=== PATIENT | female | born 1960 | race Caucasian/White ===

== ENCOUNTER 2017-08-06 10:11 | Inpatient (IN) ==
[2017-08-06] MEDS ORDERED: SODIUM CHLORIDE 0.9% 2,350 ML IV ONE (10:38)
[2017-08-06 10:55] LABS: Basophils % 0.3 % (0.0-0.8); Eosinophils # 0.1 10*3/uL (0.0-0.87); Eosinophils % 0.4 % (0.00-10.9); Hematocrit 28.2 VOL% (35.7-47.0); Hemoglobin 9.1 GM/DL (12.0-16.0); Immature Granulocytes % 0.7 %; Immature Granulocytes Absolute 0.09 #; Lymphocytes # 0.9 10*3/uL (1.4-4.0); Mean Corpuscular HGB Conc 32.3 GM/DL (32-36); Mean Corpuscular Hemoglobin 27 PG (27-34); Mean Corpuscular Volume 82.9 FL (87-102); Mean Platelet Volume 10.2 FL (9.6-12.0); Monocytes # 0.4 10*3/uL (0.11-0.8); Neutrophils # 11.1 10*3/uL (1.4-7.4); Neutrophils % 88.6 % (38.7-73.9); Platelet Count 251 T/CUMM (130-400); White Blood Count 12.5 T/CUMM (4-12)
[2017-08-06] MEDS ORDERED: HYDROCORTISONE 100 MG VIAL IV STA (11:06)
[2017-08-06 11:07] LABS: INR 0.9; Partial Thromboplastin Time 24.4 SECS (0-40)
[2017-08-06 11:13] LABS: Albumin 3.9 G/DL (3.4-5.0); Bilirubin,Total 0.4 MG/DL (0.2-1.0); Calcium 9.3 MG/DL (8.5-10.1); Osmolality,Calculated 293.1 MOS/KG (273-304); Potassium 4.5 MMOL/L (3.5-5.1); Total Protein 8.2 G/DL (6.4-8.3)
[2017-08-06 13:00] LABS: Lactic Acid 1.9 MMOL/L (0.4-2.0)
[2017-08-06] MEDS ORDERED: HYDROCORTISONE 100 MG VIAL ONE (13:03)
[2017-08-06] MEDS ORDERED: BENZTROPINE 2 MG/2 ML AMP IV PRN (14:48)
[2017-08-06] MEDS ORDERED: chlorproMAZINE INJ 50 MG in SODIUM CHLORIDE 0.9% 100 ML IV PRN (14:48)
[2017-08-06] MEDS ORDERED: MYLANTA/LIDO VISC 2:1 300 ML BOTTLE SWISH/SPIT PRN (14:48)
[2017-08-06] MEDS ORDERED: LOPERAMIDE 2 MG CAPSULE PO PRN ×2 (14:48)
[2017-08-06] MEDS ORDERED: ONDANSETRON 4 MG/2 ML VIAL IV PRN (14:48)
[2017-08-06] MEDS ORDERED: ALUMINUM/MAGNES/SIMETH MAX STR 30 ML UDCUP PO PRN (14:48)
[2017-08-06] MEDS ORDERED: diphenhydrAMINE CAP 25 MG CAPSULE PO PRN (14:48)
[2017-08-06] MEDS ORDERED: MYLANTA/LIDO VISC 2:1 300 ML BOTTLE SWISH/SWAL PRN (14:48)
[2017-08-06] MEDS ORDERED: guaiFENesin 200 MG/10 ML UDCUP PO PRN (14:48)
[2017-08-06] MEDS ORDERED: MAGNESIUM HYDROXIDE SUSP 30 ML UDCUP PO PRN (14:48)
[2017-08-06] MEDS ORDERED: ACETAMINOPHEN 325 MG TABLET PO PRN (14:48)
[2017-08-06] MEDS ORDERED: TEMAZEPAM 7.5 MG CAPSULE PO PRN (14:48)
[2017-08-06] MEDS ORDERED: LACTULOSE 20 GM/30 ML UDCUP PO PRN (14:48)
[2017-08-06] MEDS ORDERED: chlorproMAZINE 25 MG TABLET PO PRN (14:48)
[2017-08-06] MEDS ORDERED: chlorproMAZINE INJ 25 MG in SODIUM CHLORIDE 0.9% 100 ML IV PRN (14:48)
[2017-08-06] MEDS ORDERED: ALPRAZolam 0.25 MG TABLET PO PRN (14:48)
[2017-08-06] MEDS ORDERED: traMADol 50 MG TABLET PO PRN (14:48)
[2017-08-06] MEDS ORDERED: PROMETHAZINE INJ 25 MG in SODIUM CHLORIDE 0.9% 50 ML IV PRN (14:48)
[2017-08-06] MEDS: SODIUM CHLORIDE 0.9% 1,000 ML IV SCH ×2 (15:12→21:48)
[2017-08-06 16:18] LABS: Apearance,Urine Slightly Hazy (Clear); Bacteria,Urine Occasional /HPF (Few); Bilirubin,Urine Negative (Negative); Blood, Urine Small mg/dL (Negative); Glucose,Urine (UA) 150 mg/dL (Negative); Ketones,Urine Negative (Negative); Nitrite,Urine Negative (Negative); Protein,Urine Negative; Squamous Epithelial Cell,Urine Occasional /HPF (0-10); Urine Color Straw (Yellow); Urine Specific Gravity 1.006 (1.001-1.035); Urine Urobilinogen < 2.0 EU/DL (0.2-1.0); WBC,Urine 1 /HPF (0-6)
[2017-08-07] MEDS: SODIUM CHLORIDE 0.9% 1,000 ML IV SCH ×2 (04:22→12:52)
[2017-08-07 06:03] LABS: Calcium 8.3 MG/DL (8.5-10.1); Potassium 4.3 MMOL/L (3.5-5.1)
[2017-08-07 07:40] LABS: Basophils % 0.4 % (0.0-0.8); Eosinophils # 0.1 10*3/uL (0.0-0.87); Eosinophils % 0.8 % (0.00-10.9); Hematocrit 25.1 VOL% (35.7-47.0); Hemoglobin 8.1 GM/DL (12.0-16.0); Immature Granulocytes % 0.7 %; Immature Granulocytes Absolute 0.05 #; Lymphocytes # 1.8 10*3/uL (1.4-4.0); Lymphocytes % 24.9 % (21.3-54.2); Mean Corpuscular HGB Conc 32.3 GM/DL (32-36); Mean Corpuscular Hemoglobin 27 PG (27-34); Mean Corpuscular Volume 83.1 FL (87-102); Mean Platelet Volume 10.6 FL (9.6-12.0); Monocytes # 0.4 10*3/uL (0.11-0.8); Monocytes % 6.1 % (1.7-12.7); Neutrophils # 4.7 10*3/uL (1.4-7.4); Neutrophils % 67.1 % (38.7-73.9); Platelet Count 245 T/CUMM (130-400); Red Blood Count 3.02 MC/CUMM (3.8-5.5); White Blood Count 7.1 T/CUMM (4-12)
[2017-08-07] MEDS ORDERED: CLORAZEPATE 3.75 MG TABLET PO PRN (08:59)
[2017-08-07] MEDS ORDERED: CETIRIZINE 10 MG TABLET PO PRN (08:59)
[2017-08-07] MEDS ORDERED: NON-FORMULARY MEDICATION (Albuterol Inhaler 2 PUFF) INH PRN (08:59)
[2017-08-07] MEDS ORDERED: PROCHLORPERAZINE 10 MG TABLET PO PRN (08:59)
[2017-08-07] MEDS ORDERED: INSULIN NPH 100 UNIT/ML SUBCUT SCH (09:00)
[2017-08-07] MEDS ORDERED: NON-FORMULARY MEDICATION (Fluticasone 50 Mcg Nasal Spray [Flonase Nasal Spray] 2 SPRAY) BOTH NARES SCH (09:00)
[2017-08-07] MEDS ORDERED: DEXAMETHASONE 0.5 MG TABLET PO SCH (09:00)
[2017-08-07] MEDS ORDERED: NON-FORMULARY MEDICATION (Budesonide/Formoterol 160-4.5 [Symbicort 160-4.5] 2 PUFF) INH SCH (09:00)
[2017-08-07] MEDS ORDERED: CITALOPRAM 40 MG TABLET PO SCH (09:00)
[2017-08-07] MEDS ORDERED: NON-FORMULARY MEDICATION (Brexpiprazole [Rexulti] 1 MG) PO SCH (09:00)
[2017-08-07] MEDS ORDERED: PANTOPRAZOLE 40 MG TABLET PO SCH (09:00)
[2017-08-07] MEDS: GABAPENTIN 300 MG CAPSULE PO SCH ×2 (09:30→14:53)
[2017-08-07 12:36] VITALS: BP 135/65
[2017-08-07] MEDS ORDERED: HydrOXYzine PAMOATE 25 MG CAPSULE PO SCH (21:00)
[2017-08-08] MEDS ORDERED: LEVOTHYROXINE 25 MCG TABLET PO SCH (07:00)
[2017-08-08] MEDS ORDERED: GLIMEPIRIDE 4 MG TABLET PO SCH (08:00)
== END 2017-08-07 16:06 | disposition home or self-care (01) | DRG 683 ==
LOC: N.ED 10:11 → N.EDINP 12:58 → N.4E 14:49
PROVIDERS: ADMIT Specialist; ATTEND Specialist

== ENCOUNTER 2019-07-05 13:02 | Inpatient (IN) ==
[2019-07-05] MEDS ORDERED: SODIUM CHLORIDE 0.9% 1,000 ML IV STA (13:55)
[2019-07-05 14:20] LABS: Basophils # 0.1 10*3/uL (0.0-0.2); Basophils % 0.9 % (0.0-0.8); Eosinophils # 0.3 10*3/uL (0.0-0.87); Eosinophils % 3.5 % (0.00-10.9); Hemoglobin 8.2 GM/DL (12.0-16.0); Immature Granulocytes % 0.2 %; Immature Granulocytes Absolute 0.02 #; Lymphocytes # 1.1 10*3/uL (1.4-4.0); Lymphocytes % 12.3 % (21.3-54.2); Mean Corpuscular HGB Conc 30.4 GM/DL (32-36); Mean Corpuscular Volume 82.8 FL (87-102); Mean Platelet Volume 8.9 FL (9.6-12.0); Monocytes % 10.3 % (1.7-12.7); Neutrophils % 72.8 % (38.7-73.9); Platelet Count 426 T/CUMM (130-400); Red Blood Count 3.26 MC/CUMM (3.8-5.5); Red Cell Distribution Width 18.6 % (9.3-17.3); White Blood Count 8.5 T/CUMM (4-12)
[2019-07-05 14:41] LABS: Albumin 2.6 G/DL (3.4-5.0); Bilirubin,Total 0.4 MG/DL (0.2-1.0); Calcium 8.5 MG/DL (8.5-10.1); Osmolality,Calculated 269.8 MOS/KG (273-304); Total Protein 6.7 G/DL (6.4-8.3)
[2019-07-05] MEDS ORDERED: POTASSIUM CHLORIDE 20 MEQ TABLET PO STA (14:55)
[2019-07-05] MEDS ORDERED: MORPHINE 4 MG/1 ML VIAL IV PRN (15:06)
[2019-07-05] MEDS ORDERED: DEXTROSE 10% 250 ML BAG IV PRN (15:06)
[2019-07-05] MEDS ORDERED: ALUMINUM/MAGNES/SIMETH MAX STR 30 ML UDCUP PO PRN (15:06)
[2019-07-05] MEDS ORDERED: GLUCAGON 1 MG VIAL IM PRN (15:06)
[2019-07-05] MEDS ORDERED: POTASSIUM CHLORIDE 20 MEQ TABLET PO ONE ×2 (15:06→15:26)
[2019-07-05] MEDS ORDERED: MAGNESIUM SULF RIDER 4 GM in PREMIX 1 EACH IV STA (15:42)
[2019-07-05] MEDS ORDERED: ALBUTEROL 2.5 MG/3 ML NEB RESP TX PRN (15:56)
[2019-07-05] MEDS ORDERED: LEVOFLOXACIN INJ 750 MG in PREMIX 1 EACH IV SCH (17:00)
[2019-07-05] MEDS: SODIUM CHLORIDE 0.9% 1,000 ML IV SCH (18:38)
[2019-07-05] MEDS: INSULIN REGULAR 100 UNIT/ML SUBCUT SCH ×2 (18:39→21:47)
[2019-07-05] MEDS: POTASSIUM CHLORIDE RIDER 10 MEQ in PREMIX 1 EACH IV SCH ×2 (19:06→21:46)
[2019-07-05] MEDS ORDERED: SODIUM CHLORIDE 0.9% 1,000 ML IV PRN ×2 (19:23→23:29)
[2019-07-05] MEDS ORDERED: MAGNESIUM SULF RIDER 2 GM in PREMIX 1 EACH IV ONE (19:28)
[2019-07-05] MEDS: ALBUTEROL/IPRATROPIUM 3 ML NEB RESP TX SCH (19:48)
[2019-07-05] MEDS ORDERED: ENOXAPARIN 40 MG/0.4 ML SYRINGE SUBCUT SCH (21:00)
[2019-07-05] MEDS: FLUDROCORTISONE 0.1 MG TABLET PO SCH (21:46)
[2019-07-05] MEDS: GABAPENTIN 300 MG CAPSULE PO SCH (21:46)
[2019-07-05] MEDS: NYSTATIN 500,000 UNIT/5 ML UDCUP PO SCH (21:47)
[2019-07-05] MEDS: BENZTROPINE 0.5 MG TABLET PO SCH (21:47)
[2019-07-05] MEDS: VANCOMYCIN INJ 1,000 MG in SODIUM CHLORIDE 0.9% 250 ML IV SCH (23:44)
[2019-07-06] MEDS: ALBUTEROL/IPRATROPIUM 3 ML NEB RESP TX SCH ×4 (01:28→20:05)
[2019-07-06] MEDS: POTASSIUM CHLORIDE RIDER 10 MEQ in PREMIX 1 EACH IV SCH ×2 (01:50→04:01)
[2019-07-06] MEDS: LEVOTHYROXINE 75 MCG TABLET PO SCH (06:31)
[2019-07-06] MEDS: INSULIN REGULAR 100 UNIT/ML SUBCUT SCH ×4 (08:21→21:01)
[2019-07-06] MEDS: NYSTATIN 500,000 UNIT/5 ML UDCUP PO SCH ×2 (08:55→21:00)
[2019-07-06] MEDS: CITALOPRAM 40 MG TABLET PO SCH (08:55)
[2019-07-06] MEDS: FLUDROCORTISONE 0.1 MG TABLET PO SCH ×2 (08:55→21:01)
[2019-07-06] MEDS: BISACODYL 5 MG TABLET PO SCH (08:55)
[2019-07-06] MEDS: GABAPENTIN 300 MG CAPSULE PO SCH ×3 (08:55→21:01)
[2019-07-06] MEDS: SODIUM CHLORIDE 0.9% 1,000 ML IV SCH ×2 (08:56→20:12)
[2019-07-06 09:15] LABS: Basophils # 0.1 10*3/uL (0.0-0.2); Basophils % 0.7 % (0.0-0.8); Eosinophils # 0.3 10*3/uL (0.0-0.87); Eosinophils % 3.2 % (0.00-10.9); Hematocrit 31.9 VOL% (35.7-47.0); Hematocrit 32.5 VOL% (35.7-47.0); Hemoglobin 9.9 GM/DL (12.0-16.0); Immature Granulocytes % 0.4 %; Immature Granulocytes Absolute 0.03 #; Lymphocytes # 0.8 10*3/uL (1.4-4.0); Mean Corpuscular HGB Conc 30.5 GM/DL (32-36); Mean Corpuscular Volume 85.3 FL (87-102); Mean Platelet Volume 9.7 FL (9.6-12.0); Monocytes % 9.8 % (1.7-12.7); Neutrophils % 76.9 % (38.7-73.9); Platelet Count 426 T/CUMM (130-400); Red Blood Count 3.81 MC/CUMM (3.8-5.5); Red Cell Distribution Width 17.7 % (9.3-17.3); White Blood Count 8.3 T/CUMM (4-12)
[2019-07-06 09:35] LABS: % Iron Saturation 13.2 % (18-50); Ferritin 667.9 ng/ml (8-252)
[2019-07-06 09:43] LABS: Calcium 8.2 MG/DL (8.5-10.1); Osmolality,Calculated 277.3 MOS/KG (273-304); Risk Ratio 3.02; Thyroid Stimulating Hormone 5.21 uIU/ml (0.358-3.74)
[2019-07-06] MEDS: MEROPENEM 500 MG in SODIUM CHLORIDE 0.9% 100 ML IV SCH ×3 (09:44→21:04)
[2019-07-06] MEDS: FLUTICASONE 50 MCG NASAL SPRAY 16 GM BOTTLE BOTH NARES SCH (09:44)
[2019-07-06] MEDS ORDERED: POTASSIUM CHLORIDE 20 MEQ/15 ML UDCUP PO ONE (11:55)
[2019-07-06] MEDS: POLYETHYLENE GLYCOL POWDER 17 GM PACK PO SCH (12:21)
[2019-07-06 13:33] LABS: Apearance,Urine CLEAR (Clear); Bacteria,Urine Occasional /HPF (Few); Bilirubin,Urine Negative (Negative); Blood, Urine Negative (Negative); Glucose,Urine (UA) Negative (Negative); Ketones,Urine Negative (Negative); Nitrite,Urine Negative (Negative); Protein,Urine Negative; RBC,Urine 1 /HPF (0-4); Squamous Epithelial Cell,Urine Occasional /HPF (0-10); Urine Color Yellow (Yellow); Urine Specific Gravity 1.015 (1.001-1.035); Urine Urobilinogen < 2.0 EU/DL (0.2-1.0); WBC,Urine 1 /HPF (0-6)
[2019-07-06] MEDS: BENZTROPINE 0.5 MG TABLET PO SCH (21:03)
[2019-07-06] MEDS: VANCOMYCIN INJ 1,000 MG in SODIUM CHLORIDE 0.9% 250 ML IV SCH (22:14)
[2019-07-07] MEDS: ALBUTEROL/IPRATROPIUM 3 ML NEB RESP TX SCH ×4 (00:49→19:27)
[2019-07-07] MEDS: MEROPENEM 500 MG in SODIUM CHLORIDE 0.9% 100 ML IV SCH ×2 (03:23→15:38)
[2019-07-07] MEDS: LEVOTHYROXINE 75 MCG TABLET PO SCH (05:30)
[2019-07-07 05:54] LABS: Calcium 8.1 MG/DL (8.5-10.1); Osmolality,Calculated 278.3 MOS/KG (273-304)
[2019-07-07 06:19] LABS: Basophils # 0.1 10*3/uL (0.0-0.2); Basophils % 0.7 % (0.0-0.8); Eosinophils # 0.4 10*3/uL (0.0-0.87); Eosinophils % 4.2 % (0.00-10.9); Hematocrit 33.5 VOL% (35.7-47.0); Hemoglobin 10.1 GM/DL (12.0-16.0); Immature Granulocytes % 0.3 %; Immature Granulocytes Absolute 0.03 #; Lymphocytes # 0.7 10*3/uL (1.4-4.0); Mean Corpuscular HGB Conc 30.1 GM/DL (32-36); Mean Corpuscular Volume 84.8 FL (87-102); Mean Platelet Volume 9.7 FL (9.6-12.0); Monocytes % 10.7 % (1.7-12.7); Neutrophils % 76.1 % (38.7-73.9); Platelet Count 429 T/CUMM (130-400); Red Blood Count 3.95 MC/CUMM (3.8-5.5); White Blood Count 8.8 T/CUMM (4-12)
[2019-07-07 06:26] LABS: Acanthocytes Few; Anisocytosis 1+; Hypochromasia 1+; Microcytosis 1+; Ovalocytes Slight; Platelet Estimate Increased
[2019-07-07] MEDS ORDERED: POTASSIUM CHLORIDE 20 MEQ/15 ML UDCUP PO ONE (08:35)
[2019-07-07] MEDS ORDERED: MAGNESIUM SULF RIDER 2 GM in PREMIX 1 EACH IV ONE ×2 (08:35→22:30)
[2019-07-07] MEDS: INSULIN REGULAR 100 UNIT/ML SUBCUT SCH ×4 (08:48→22:01)
[2019-07-07 09:14] LABS: Free T4 (Free Thyroxine) 1.28 NG/DL (0.76-1.46)
[2019-07-07] MEDS: NYSTATIN 500,000 UNIT/5 ML UDCUP PO SCH ×2 (10:33→22:01)
[2019-07-07] MEDS: FLUDROCORTISONE 0.1 MG TABLET PO SCH ×2 (10:33→22:01)
[2019-07-07] MEDS: CITALOPRAM 40 MG TABLET PO SCH (10:33)
[2019-07-07] MEDS: BISACODYL 5 MG TABLET PO SCH (10:34)
[2019-07-07] MEDS: POLYETHYLENE GLYCOL POWDER 17 GM PACK PO SCH (10:34)
[2019-07-07] MEDS: GABAPENTIN 300 MG CAPSULE PO SCH ×3 (10:34→22:01)
[2019-07-07] MEDS: FLUTICASONE 50 MCG NASAL SPRAY 16 GM BOTTLE BOTH NARES SCH (10:35)
[2019-07-07] MEDS: POTASSIUM CHLORIDE 8 MEQ CAPSULE PO SCH ×2 (10:39→22:01)
[2019-07-07] MEDS: MAGNESIUM OXIDE 400 MG TABLET PO SCH ×2 (10:39→22:01)
[2019-07-07] MEDS ORDERED: POTASSIUM CHLORIDE 20 MEQ TABLET PO ONE ×2 (13:00→17:00)
[2019-07-07] MEDS: SODIUM CHLORIDE 0.9% 1,000 ML IV SCH ×3 (16:02→22:39)
[2019-07-07] MEDS: BENZTROPINE 0.5 MG TABLET PO SCH (22:00)
[2019-07-07] MEDS: POTASSIUM CHLORIDE RIDER 10 MEQ in PREMIX 1 EACH IV PRN (22:38)
[2019-07-07] MEDS: VANCOMYCIN INJ 1,000 MG in SODIUM CHLORIDE 0.9% 250 ML IV SCH (22:39)
[2019-07-08] MEDS: POTASSIUM CHLORIDE RIDER 10 MEQ in PREMIX 1 EACH IV PRN ×6 (00:21→17:05)
[2019-07-08] MEDS: MEROPENEM 500 MG in SODIUM CHLORIDE 0.9% 100 ML IV SCH ×5 (00:22→20:41)
[2019-07-08] MEDS: ALBUTEROL/IPRATROPIUM 3 ML NEB RESP TX SCH ×4 (00:55→18:02)
[2019-07-08] MEDS: LEVOTHYROXINE 75 MCG TABLET PO SCH (06:19)
[2019-07-08] MEDS ORDERED: MAGNESIUM SULF RIDER 4 GM in PREMIX 1 EACH IV PRN (06:59)
[2019-07-08] MEDS: INSULIN REGULAR 100 UNIT/ML SUBCUT SCH ×4 (08:42→20:41)
[2019-07-08 08:54] LABS: Albumin 2.3 G/DL (3.4-5.0); Bilirubin,Total 0.8 MG/DL (0.2-1.0); Calcium 8.6 MG/DL (8.5-10.1); Osmolality,Calculated 272.7 MOS/KG (273-304); Total Protein 6.3 G/DL (6.4-8.3)
[2019-07-08] MEDS ORDERED: POTASSIUM CHLORIDE INJ 40 MEQ in SODIUM CHLORIDE 0.9% 1,000 ML IV SCH (09:24)
[2019-07-08] MEDS: MAGNESIUM SULF RIDER 2 GM in PREMIX 1 EACH IV PRN (10:30)
[2019-07-08 12:30] LABS: Basophils # 0.1 10*3/uL (0.0-0.2); Basophils % 0.5 % (0.0-0.8); Eosinophils # 0.5 10*3/uL (0.0-0.87); Eosinophils % 4.9 % (0.00-10.9); Hematocrit 33.4 VOL% (35.7-47.0); Hemoglobin 10.4 GM/DL (12.0-16.0); Immature Granulocytes % 0.3 %; Immature Granulocytes Absolute 0.03 #; Lymphocytes # 0.9 10*3/uL (1.4-4.0); Lymphocytes % 9.8 % (21.3-54.2); Mean Corpuscular HGB Conc 31.1 GM/DL (32-36); Mean Corpuscular Volume 83.5 FL (87-102); Mean Platelet Volume 9.6 FL (9.6-12.0); Monocytes % 9.4 % (1.7-12.7); Neutrophils % 75.1 % (38.7-73.9); Platelet Count 423 T/CUMM (130-400); Red Cell Distribution Width 18.4 % (9.3-17.3); White Blood Count 9.6 T/CUMM (4-12)
[2019-07-08] MEDS: SODIUM CHLOR 0.9% KCL 40 MEQ 40 MEQ/1,000 ML BAG IV SCH (12:45)
[2019-07-08] MEDS: CITALOPRAM 40 MG TABLET PO SCH (14:45)
[2019-07-08] MEDS: BISACODYL 5 MG TABLET PO SCH (14:45)
[2019-07-08] MEDS: MAGNESIUM OXIDE 400 MG TABLET PO SCH ×2 (14:46→20:40)
[2019-07-08] MEDS: POTASSIUM CHLORIDE 8 MEQ CAPSULE PO SCH ×2 (14:46→20:40)
[2019-07-08] MEDS: FLUDROCORTISONE 0.1 MG TABLET PO SCH ×2 (14:46→20:40)
[2019-07-08] MEDS: POLYETHYLENE GLYCOL POWDER 17 GM PACK PO SCH (14:46)
[2019-07-08] MEDS: FLUTICASONE 50 MCG NASAL SPRAY 16 GM BOTTLE BOTH NARES SCH (14:46)
[2019-07-08] MEDS: POTASSIUM CHLORIDE RIDER 10 MEQ in PREMIX 1 EACH IV SCH ×2 (14:47→14:48)
[2019-07-08] MEDS: GABAPENTIN 300 MG CAPSULE PO SCH ×3 (14:47→20:40)
[2019-07-08] MEDS: NYSTATIN 500,000 UNIT/5 ML UDCUP PO SCH ×2 (14:47→20:40)
[2019-07-08] MEDS: BENZTROPINE 0.5 MG TABLET PO SCH (20:40)
[2019-07-09] MEDS: ALBUTEROL/IPRATROPIUM 3 ML NEB RESP TX SCH ×2 (00:38→06:57)
[2019-07-09] MEDS: MEROPENEM 500 MG in SODIUM CHLORIDE 0.9% 100 ML IV SCH ×4 (02:59→20:38)
[2019-07-09 05:17] LABS: Basophils # 0.1 10*3/uL (0.0-0.2); Eosinophils # 0.5 10*3/uL (0.0-0.87); Eosinophils % 7.1 % (0.00-10.9); Hematocrit 34.4 VOL% (35.7-47.0); Hemoglobin 10.4 GM/DL (12.0-16.0); Immature Granulocytes % 0.3 %; Immature Granulocytes Absolute 0.02 #; Lymphocytes # 0.6 10*3/uL (1.4-4.0); Lymphocytes % 9.5 % (21.3-54.2); Mean Corpuscular HGB Conc 30.2 GM/DL (32-36); Mean Corpuscular Volume 85.4 FL (87-102); Mean Platelet Volume 9.1 FL (9.6-12.0); Monocytes % 10.5 % (1.7-12.7); Neutrophils % 71.6 % (38.7-73.9); Platelet Count 420 T/CUMM (130-400); Red Blood Count 4.03 MC/CUMM (3.8-5.5); Red Cell Distribution Width 18.2 % (9.3-17.3); White Blood Count 6.8 T/CUMM (4-12)
[2019-07-09] MEDS: SODIUM CHLOR 0.9% KCL 40 MEQ 40 MEQ/1,000 ML BAG IV SCH ×3 (05:27→23:23)
[2019-07-09 05:51] LABS: Calcium 8.8 MG/DL (8.5-10.1); Osmolality,Calculated 280.1 MOS/KG (273-304)
[2019-07-09] MEDS ORDERED: propofoL 200 MG/20 ML VIAL IV ONE (09:00)
[2019-07-09] MEDS ORDERED: LIDOCAINE 2% 5 ML VIAL ONE (09:00)
[2019-07-09] MEDS ORDERED: ETOMIDATE 20 MG/10 ML VIAL IV ONE (09:00)
[2019-07-09] MEDS: LACTATED RINGERS 1,000 ML IV SCH ×2 (09:23→11:34)
[2019-07-09] MEDS: LEVOTHYROXINE 75 MCG TABLET PO SCH (11:04)
[2019-07-09] MEDS: INSULIN REGULAR 100 UNIT/ML SUBCUT SCH ×4 (11:05→20:41)
[2019-07-09] MEDS: BISACODYL 5 MG TABLET PO SCH (11:06)
[2019-07-09] MEDS: CITALOPRAM 40 MG TABLET PO SCH (11:06)
[2019-07-09] MEDS: FLUDROCORTISONE 0.1 MG TABLET PO SCH (11:06)
[2019-07-09] MEDS: FLUTICASONE 50 MCG NASAL SPRAY 16 GM BOTTLE BOTH NARES SCH (11:06)
[2019-07-09] MEDS: NYSTATIN 500,000 UNIT/5 ML UDCUP PO SCH ×2 (11:07→20:36)
[2019-07-09] MEDS: POLYETHYLENE GLYCOL POWDER 17 GM PACK PO SCH (11:07)
[2019-07-09] MEDS: MAGNESIUM OXIDE 400 MG TABLET PO SCH ×2 (11:07→20:36)
[2019-07-09] MEDS: GABAPENTIN 300 MG CAPSULE PO SCH ×3 (11:07→20:37)
[2019-07-09] MEDS: POTASSIUM CHLORIDE 8 MEQ CAPSULE PO SCH ×2 (11:07→20:37)
[2019-07-09] MEDS: LEVALBUTEROL 0.31 MG/3 ML NEB RESP TX SCH ×2 (13:20→19:52)
[2019-07-09] MEDS: BENZTROPINE 0.5 MG TABLET PO SCH (20:37)
[2019-07-10] MEDS: MEROPENEM 500 MG in SODIUM CHLORIDE 0.9% 100 ML IV SCH ×4 (02:50→21:40)
[2019-07-10] MEDS: LEVALBUTEROL 0.31 MG/3 ML NEB RESP TX SCH ×4 (03:03→23:34)
[2019-07-10] MEDS: LEVOTHYROXINE 75 MCG TABLET PO SCH (06:09)
[2019-07-10 06:12] LABS: Basophils # 0.1 10*3/uL (0.0-0.2); Basophils % 1.1 % (0.0-0.8); Eosinophils # 0.7 10*3/uL (0.0-0.87); Eosinophils % 8.6 % (0.00-10.9); Hematocrit 34.1 VOL% (35.7-47.0); Hemoglobin 10.6 GM/DL (12.0-16.0); Immature Granulocytes % 0.4 %; Immature Granulocytes Absolute 0.03 #; Lymphocytes # 0.6 10*3/uL (1.4-4.0); Lymphocytes % 8.1 % (21.3-54.2); Mean Corpuscular HGB Conc 31.1 GM/DL (32-36); Mean Corpuscular Volume 83.8 FL (87-102); Monocytes % 10.2 % (1.7-12.7); Neutrophils % 71.6 % (38.7-73.9); Platelet Count 390 T/CUMM (130-400); Red Blood Count 4.07 MC/CUMM (3.8-5.5); Red Cell Distribution Width 18.1 % (9.3-17.3); White Blood Count 7.6 T/CUMM (4-12)
[2019-07-10] MEDS: SODIUM CHLORIDE 0.9% 1,000 ML IV SCH (07:25)
[2019-07-10] MEDS: POTASSIUM CHLORIDE RIDER 10 MEQ in PREMIX 1 EACH IV SCH (07:26)
[2019-07-10 08:01] LABS: Calcium 8.5 MG/DL (8.5-10.1); Osmolality,Calculated 274.5 MOS/KG (273-304); Prealbumin 7.4 MG/DL (20-40)
[2019-07-10] MEDS: FLUTICASONE 50 MCG NASAL SPRAY 16 GM BOTTLE BOTH NARES SCH (08:55)
[2019-07-10] MEDS: INSULIN REGULAR 100 UNIT/ML SUBCUT SCH ×4 (08:56→21:43)
[2019-07-10] MEDS: GABAPENTIN 300 MG CAPSULE PO SCH ×3 (08:56→21:18)
[2019-07-10] MEDS: CITALOPRAM 40 MG TABLET PO SCH (08:56)
[2019-07-10] MEDS: MAGNESIUM OXIDE 400 MG TABLET PO SCH ×2 (08:56→21:18)
[2019-07-10] MEDS: POTASSIUM CHLORIDE 8 MEQ CAPSULE PO SCH ×2 (08:56→21:18)
[2019-07-10] MEDS: BISACODYL 5 MG TABLET PO SCH (08:56)
[2019-07-10] MEDS: SODIUM CHLOR 0.9% KCL 40 MEQ 40 MEQ/1,000 ML BAG IV SCH ×3 (08:58→21:43)
[2019-07-10] MEDS: POLYETHYLENE GLYCOL POWDER 17 GM PACK PO SCH (08:58)
[2019-07-10] MEDS: NYSTATIN 500,000 UNIT/5 ML UDCUP PO SCH ×2 (08:58→21:17)
[2019-07-10] MEDS: MAGNESIUM SULF RIDER 2 GM in PREMIX 1 EACH IV PRN (09:49)
[2019-07-10] MEDS: ONDANSETRON 4 MG/2 ML VIAL IV PRN ×2 (09:54→16:29)
[2019-07-10] MEDS ORDERED: METOCLOPRAMIDE 10 MG/2 ML VIAL IV ONE (17:26)
[2019-07-10] MEDS: BENZTROPINE 0.5 MG TABLET PO SCH (21:18)
[2019-07-11] MEDS: LEVALBUTEROL 0.31 MG/3 ML NEB RESP TX SCH ×2 (00:03→07:45)
[2019-07-11] MEDS: MEROPENEM 500 MG in SODIUM CHLORIDE 0.9% 100 ML IV SCH ×2 (03:12→08:00)
[2019-07-11] MEDS: LEVOTHYROXINE 75 MCG TABLET PO SCH (05:47)
[2019-07-11] MEDS: CITALOPRAM 40 MG TABLET PO SCH (08:00)
[2019-07-11] MEDS: MAGNESIUM OXIDE 400 MG TABLET PO SCH (08:00)
[2019-07-11] MEDS: FLUTICASONE 50 MCG NASAL SPRAY 16 GM BOTTLE BOTH NARES SCH (08:00)
[2019-07-11] MEDS: POTASSIUM CHLORIDE 8 MEQ CAPSULE PO SCH (08:01)
[2019-07-11] MEDS: GABAPENTIN 300 MG CAPSULE PO SCH (08:01)
[2019-07-11] MEDS: NYSTATIN 500,000 UNIT/5 ML UDCUP PO SCH (08:02)
[2019-07-11 11:36] VITALS: BP 87/56
== END 2019-07-11 13:31 | disposition home or self-care (01) | DRG 871 ==
LOC: N.ED 13:02 → N.EDINP 15:06 → SUATTDRO 15:06 → N.EDINP 18:16 → N.TELEN 18:22 → N.4E 07-07 19:59
PROVIDERS: ADMIT Internal Medicine; ATTEND Internal Medicine
PROC: EGDWPEG (ICD-10-PCS; 2019-07-09 06:35)